=== PATIENT | male | born 1945 | race Caucasian/White ===

== ENCOUNTER → 2018-03-30 08:38 | Outpatient (CLI) | payer OTHER, SELFPAY ==
[2018-03-30 14:04] LABS: ALT 95 U/L (12-78); AST 80 U/L (15-37); Albumin 3.7 g/dL (3.4-5.0); Alkaline Phosphatase 169 U/L (46-116); Bilirubin, Direct 0.16 mg/dL (0.00-0.20); Bilirubin, Total 0.5 mg/dL (0.2-1.0); Total Protein 7.3 g/dL (6.4-8.2)
== END ==
PROVIDERS: PCP Family Medicine; Visit Provider Family Medicine
DX: R94.5 Abnormal results of liver function studies (principal)
CPT/HCPCS: 36415; 80076

== ENCOUNTER 2018-05-18 09:41 | Outpatient (CLI) | payer BC, SELFPAY ==
[2018-05-18 10:12] LABS: Abs Immature Grans 0.01 k/cumm (0.0-0.09); Absolute Basophil Count 0.01 k/cumm (0.0-0.2); Absolute Eosinophil Count 0.06 k/cumm (0.0-0.7); Absolute Lymphocyte Count 1.33 k/cumm (1.2-3.4); Absolute Monocyte Count 0.47 k/cumm (0.11-0.7); Absolute Neutrophil Count 3.18 k/cumm (1.2-6.7); Basophils % 0.2; Eosinophils % 1.2; HCT 43.2 % (40.0-50.0); Immature Grans % 0.2; Lymphocytes % 26.3; Mean Corp. HGB Concentration 34.7 g/dL (32.0-36.0); Mean Corpuscular Hemoglobin 34.5 pg (27.0-33.0); Mean Corpuscular Volume 99.3 fL (80-95); Mean Platelet Volume 10.1 fL (8.0-11.0); Monocytes % 9.3; Neutrophils % 62.8; Platelet Count 156 x1000/uL (130-400); RBC 4.35 m/cumm (4.50-6.00); RBC Distribution Width 12.9 % (11.8-14.1); White Blood Cell Count 5.06 k/cumm (4.4-10.8)
[2018-05-18 10:27] LABS: Hemoglobin A1C 6.3 % (4.5-6.2)
[2018-05-18 10:55] LABS: ALT 66 U/L (12-78); AST 59 U/L (15-37); Albumin 3.8 g/dL (3.4-5.0); Alkaline Phosphatase 111 U/L (46-116); Anion Gap 8.7 mmol/L (3-11); BUN 18 mg/dL (7-18); Bilirubin, Total 0.7 mg/dL (0.2-1.0); CO2 28.3 mmol/L (21.0-32.0); CREATININE 0.85 mg/dL (0.70-1.30); Calcium 9.4 mg/dL (8.5-10.1); Chloride 105 mmol/L (98-107); Glucose 124 mg/dL (70-100); Potassium 4.5 mmol/L (3.5-5.1); Sodium 142 mmol/L (136-145); Total Protein 7.3 g/dL (6.4-8.2); Uric Acid 5.2 mg/dL (3.5-7.2)
[2018-05-18 13:37] LABS: Iron 132 ug/dL (50-175); Total Iron Binding Capacity 275 ug/dL (250-450); Transferrin Sat 48 % (20-55)
[2018-05-18 14:39] LABS: Cholesterol 159 mg/dL (50-200); Ferritin 805 ng/mL (8-388); HDL Cholesterol 49 mg/dL (40-60); LDL CHOLESTEROL 98 mg/dL (<100); Triglyceride 90 mg/dL (30-150)
== END 2018-05-18 10:01 ==
PROVIDERS: PCP Family Medicine; Visit Provider Family Medicine
DX: R94.5 Abnormal results of liver function studies (principal); E78.5 Hyperlipidemia, unspecified; E11.9 Type 2 diabetes mellitus without complications; M76.61 Achilles tendinitis, right leg
CPT/HCPCS: 36415; 80053; 80061; 83721; 82728; 83036; 83540; 83550; 84550; 85025

== ENCOUNTER 2018-07-11 09:31 | Outpatient (CLI) | payer BC, SELFPAY ==
[2018-07-11 10:09] LABS: Abs Immature Grans 0.01 k/cumm (0.0-0.09); Absolute Basophil Count 0.01 k/cumm (0.0-0.2); Absolute Eosinophil Count 0.13 k/cumm (0.0-0.7); Absolute Lymphocyte Count 1.48 k/cumm (1.2-3.4); Absolute Monocyte Count 0.59 k/cumm (0.11-0.7); Absolute Neutrophil Count 3.54 k/cumm (1.2-6.7); Basophils % 0.2; Eosinophils % 2.3; HCT 46.7 % (40.0-50.0); HGB 15.4 g/dL (13.5-17.5); Immature Grans % 0.2; Lymphocytes % 25.7; Mean Corpuscular Hemoglobin 33.4 pg (27.0-33.0); Mean Corpuscular Volume 101.3 fL (80-95); Mean Platelet Volume 10.1 fL (8.0-11.0); Monocytes % 10.2; Neutrophils % 61.4; Platelet Count 172 x1000/uL (130-400); RBC 4.61 m/cumm (4.50-6.00); RBC Distribution Width 13.3 % (11.8-14.1); White Blood Cell Count 5.76 k/cumm (4.4-10.8)
[2018-07-11 10:54] LABS: ALT 69 U/L (12-78); AST 53 U/L (15-37); Albumin 3.9 g/dL (3.4-5.0); Alkaline Phosphatase 120 U/L (46-116); Anion Gap 7.9 mmol/L (3-11); BUN 25 mg/dL (7-18); Bilirubin, Total 0.7 mg/dL (0.2-1.0); CO2 31.1 mmol/L (21.0-32.0); CREATININE 0.87 mg/dL (0.70-1.30); Calcium 9.8 mg/dL (8.5-10.1); Chloride 103 mmol/L (98-107); Glucose 119 mg/dL (70-100); Potassium 4.8 mmol/L (3.5-5.1); Sodium 142 mmol/L (136-145); TSH (W/Ref FT4) 2.06 uIU/mL (0.358-3.74); Total Protein 7.6 g/dL (6.4-8.2)
== END 2018-07-11 09:51 ==
PROVIDERS: PCP Family Medicine; Visit Provider Family Medicine
DX: R19.7 Diarrhea, unspecified (principal)
CPT/HCPCS: 36415; 80053; 84443; 85025

== ENCOUNTER 2019-05-02 02:22 | Outpatient (CLI) | payer BC, SELFPAY ==
[2019-05-02 11:48] LABS: HCT 42.6 % (40.0-50.0); HGB 14.6 g/dL (13.5-17.5); Mean Corp. HGB Concentration 34.3 g/dL (32.0-36.0); Mean Corpuscular Hemoglobin 34.7 pg (27.0-33.0); Mean Corpuscular Volume 101.2 fL (80-95); Mean Platelet Volume 10.5 fL (8.0-11.0); Platelet Count 150 x1000/uL (130-400); RBC 4.21 m/cumm (4.50-6.00); White Blood Cell Count 4.13 k/cumm (4.4-10.8)
[2019-05-02 12:02] LABS: Hemoglobin A1C 6.1 % (4.5-6.2)
[2019-05-02 12:05] LABS: ALT 62 U/L (16-63); AST 52 U/L (15-37); Albumin 3.8 g/dL (3.4-5.0); Alkaline Phosphatase 116 U/L (46-116); Anion Gap 7.9 mmol/L (3-11); BUN 26 mg/dL (7-18); Bilirubin, Total 0.7 mg/dL (0.2-1.0); CO2 29.1 mmol/L (21.0-32.0); CREATININE 0.98 mg/dL (0.70-1.30); Calcium 9.1 mg/dL (8.5-10.1); Calculated LDL 109 mg/dL; Chloride 105 mmol/L (98-107); Cholesterol 177 mg/dL (50-200); Glucose 120 mg/dL (70-100); HDL Cholesterol 46 mg/dL (40-60); Potassium 4.5 mmol/L (3.5-5.1); Sodium 142 mmol/L (136-145); Total Protein 7.3 g/dL (6.4-8.2); Triglyceride 112 mg/dL (30-150)
[2019-05-02 12:21] LABS: Folate 17.7 ng/mL (8.6-20.0); Vitamin B12 726 pg/mL (193-986)
[2019-05-02 13:13] LABS: COMMENT (LAB VIEW ONLY) 76.56 mg/dL; Microalb ug/mg Crea 11.1 ug/mg Cr
== END 2019-05-02 02:42 ==
PROVIDERS: PCP Family Medicine; Visit Provider Family Medicine
DX: E11.9 Type 2 diabetes mellitus without complications (principal); D75.89 Other specified diseases of blood and blood-forming organs
CPT/HCPCS: 36415; 80053; 80061; 85027; 82043; 82570; 82607; 82746; 83036

== ENCOUNTER 2020-04-15 03:48 | Outpatient (CLI) | payer BC, SELFPAY ==
[2020-04-15 12:50] LABS: Absolute Basophil Count 0.02 10^3/uL (0.0-0.2); Absolute Eosinophil Count 0.06 10^3/uL (0.0-0.7); Absolute Lymphocyte Count 1.21 10^3/uL (1.2-3.4); Absolute Monocyte Count 0.54 10^3/uL (0.1-0.8); Absolute Neutrophil Count 3.42 10^3/uL (1.2-6.7); Basophils % 0.4; Eosinophils % 1.1; HCT 49.9 % (40.0-50.0); HGB 16.3 g/dL (13.5-17.5); MCH 34.3 pg (27.0-33.0); MCHC 32.7 % (32.0-36.0); MCV 105.1 fL (80-95); MPV 10.7 fL (8.0-11.0); Monocytes % 10.3; Neutrophils % 65.2; Nucleated RBC 0 %; Platelet Count 147 10^3/uL (130-400); RBC 4.75 10^6/uL (4.36-5.78); RDW 13.5 % (11.8-14.1); WBC 5.25 10^3/uL (4.4-10.8)
[2020-04-15 13:03] LABS: ALT 92 U/L (16-63); AST 67 U/L (15-37); Alkaline Phosphatase 136 U/L (46-116); Anion Gap 5.2 mmol/L (3-11); BUN 24 mg/dL (7-18); Bilirubin, Total 0.9 mg/dL (0.2-1.0); CO2 28.8 mmol/L (21.0-32.0); CREATININE 0.93 mg/dL (0.70-1.30); Calcium 9.2 mg/dL (8.5-10.1); Calculated LDL 64 mg/dL (<100); Chloride 106 mmol/L (98-107); Cholesterol 129 mg/dL (<200); Glucose 124 mg/dL (74-106); HDL Cholesterol 46 mg/dL (40-60); Hemoglobin A1C 6.4 % (<5.7); Potassium 4.2 mmol/L (3.5-5.1); Sodium 140 mmol/L (136-145); Total Protein 7.4 g/dL (6.4-8.2); Triglyceride 95 mg/dL (<150)
[2020-04-15 13:55] LABS: Diff Comment RBC Morph Reviewed; Macrocytosis 1+
== END 2020-04-15 04:08 ==
PROVIDERS: PCP Family Medicine; Visit Provider Family Medicine
DX: E11.9 Type 2 diabetes mellitus without complications (principal); E78.5 Hyperlipidemia, unspecified
CPT/HCPCS: 36415; 80053; 80061; 83036; 85025

== ENCOUNTER 2020-05-05 09:50 | Outpatient (CLI) | payer BC, SELFPAY ==
[2020-05-05 12:29] LABS: Reticulocyte 1.3 % (0.5-2.4)
[2020-05-05 12:35] LABS: ALT 80 U/L (16-63); AST 62 U/L (15-37); Albumin 3.9 g/dL (3.4-5.0); Alkaline Phosphatase 132 U/L (46-116); Bilirubin, Direct 0.32 mg/dL (0.00-0.20); Bilirubin, Total 1.1 mg/dL (0.2-1.0); Total Protein 7.5 g/dL (6.4-8.2)
== END 2020-05-05 10:10 ==
PROVIDERS: PCP Family Medicine; Visit Provider Family Medicine
DX: R94.5 Abnormal results of liver function studies (principal); R71.8 Other abnormality of red blood cells
CPT/HCPCS: 36415; 80076; 85045

== ENCOUNTER 2020-08-21 04:54 | Outpatient (CLI) | payer BC, SELFPAY ==
--- NOTE | 2020-08-21 07:15 | DI.US_ITS ---
EXAM: US ABDOMEN CLINICAL HISTORY: elevated LFT's,R94.5 TECHNIQUE: Ultrasound abdomen performed using standard protocol. COMPARISON: No exams were available for comparison FINDINGS: ABDOMINAL AORTA AND IVC: Visualized portions normal caliber. PANCREAS: Normal where visualized. LIVER: Diffuse increased echogenicity consistent with fatty infiltration. Hepatopedal flow in the Po rtal Vein. There is a 4.1 x 2.6 x 2.6 cm hypoechoic solid mass in the right lobe of the liver. Mild vascularity is noted. GALLBLADDER: No evidence of cholelithiasis. No evidence of wall thickening. No pericholecystic fluid identified. BILIARY SYSTEM: Common bile duct measures < 7 mm. No intrahepatic biliary ductal dilation. BURNETT'S SIGN: Negative. KIDNEYS: Kidneys are symmetric in size. No evidence of renal calculi. No evidence of hydronephrosis. There is a 1 x 0.6 x 0.9 cm simple cyst in the midpole of the left kidney. There is a 2.3 x 1.7 x 2. 6 cm cyst in the inferior pole of the right kidney. There does appear to be a thin internal septatio n. No associated solid mass. SPLEEN: Upper limits of normal at 12.5 cm. ASCITES: None seen. IMPRESSION: 1. Hepatic steatosis. 2. 4.1 x 2.6 x 2.6 cm hypoechoic solid mass in the right lobe of the liver. A [address] scan of the abdomen is recommended for further evaluation. 3. Bilateral renal cysts. 4. Upper limits of normal spleen. DATA REPOSITORY:
[2020-08-21 09:01] LABS: Abs Immature Grans 0.01 10^3/uL (0.0-0.06); Absolute Basophil Count 0.03 10^3/uL (0.0-0.2); Absolute Eosinophil Count 0.06 10^3/uL (0.0-0.7); Absolute Lymphocyte Count 1.46 10^3/uL (1.2-3.4); Absolute Monocyte Count 0.54 10^3/uL (0.1-0.8); Absolute Neutrophil Count 3.12 10^3/uL (1.2-6.7); Basophils % 0.6; Eosinophils % 1.1; HCT 48.7 % (40.0-50.0); HGB 16.3 g/dL (13.5-17.5); Immature Grans % 0.2; MCH 33.5 pg (27.0-33.0); MCHC 33.5 % (32.0-36.0); MCV 100.2 fL (80-95); MPV 9.6 fL (8.0-11.0); Monocytes % 10.3; Neutrophils % 59.8; Nucleated RBC 0 %; Platelet Count 137 10^3/uL (130-400); RBC 4.86 10^6/uL (4.36-5.78); RDW 12.5 % (11.8-14.1); RDW-SD 46.5 fL; WBC 5.22 10^3/uL (4.4-10.8)
[2020-08-21 09:48] LABS: Iron 155 ug/dL (65-175); Total Iron Binding Capacity 275 ug/dL (250-450); Transferrin Sat 56 % (20-55)
[2020-08-21 10:16] LABS: Ferritin 777 ng/mL (26-388); Vitamin B12 1120 pg/mL (193-986)
[2020-08-21 10:17] LABS: Folate > 20.0 ng/mL (8.6-20.0)
[2020-08-22 11:01] LABS: C-Reactive Protein 0.48 mg/dL (0.0-0.3)
[2020-08-22 20:26] LABS: ALT 78 U/L (16-63); AST 58 U/L (15-37); Albumin 4.3 g/dL (3.4-5.0); Alkaline Phosphatase 121 U/L (46-116); Bilirubin, Direct 0.21 mg/dL (0.00-0.20); Bilirubin, Total 0.9 mg/dL (0.2-1.0); Total Protein 7.9 g/dL (6.4-8.2)
== END 2020-08-21 05:14 ==
PROVIDERS: Family Medicine; PCP Family Medicine; Visit Provider Family Medicine
DX: K76.0 Fatty (change of) liver, not elsewhere classified (principal); N28.1 Cyst of kidney, acquired; K76.89 Other specified diseases of liver; R94.5 Abnormal results of liver function studies; D75.89 Other specified diseases of blood and blood-forming organs; R79.89 Other specified abnormal findings of blood chemistry
CPT/HCPCS: 36415; 80076; 85652; 76700; 82607; 82728; 82746; 83540; 83550; 85025; 86140

== ENCOUNTER 2020-09-04 01:24 | Outpatient (CLI) | payer BC, SELFPAY ==
--- NOTE | 2020-09-04 06:30 | DI.MRI_ITS ---
EXAM: MR ABDOMEN WO/W CLINICAL HISTORY: liver lesion TECHNIQUE: Multiplanar multisequence MRA of the Abdomen was performed. CONTRAST MATERIAL: IV Contrast: 18 mL of Dotarem contrast administered. COMPARISON: US US ABDOMEN from 08/21/2020 FINDINGS: The examination is limited due to patient motion artifact. Liver: Overall, there are findings of fatty infiltration of the liver with increased signal of the li pérez compared to the spleen on the inphase images. On the T2 weighted images, there is a bilobed area of hyperintense signal measuring 4.1 x 3.1 cm. It is located in the posterior segment of the right lobe of the liver. This area shows enhancement on the arterial phase images. There does appear to b e persistent enhancement on the venous, 3, 5 and 10 minutes delayed images. However a component of t his area becomes hypointense on the venous and subsequent images. (Series [id number], image 68 compared w ith series [id number], image 69). No other hepatic lesions are identified. Pancreas: Unremarkable. Gallbladderand Bile Ducts: Unremarkable. No biliary ductal dilatation. Adrenals: Unremarkable. 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 Spleen: Unremarkable. Aorta: Unremarkable. Soft Tissues: Unremarkable. Bone: Multilevel degenerative changes are present. Lymph Nodes: No adenopathy. IMPRESSION: 1. Examination limited by patient motion artifact. 2. 4.1 x 3.1 cm lesion in the posterior segment of the right lobe of the liver as described above. A hepatic neoplasm should be excluded including hepatocellular carcinoma, fibrolamellar HCC or metasta tic disease. DATA REPOSITORY:
[2020-09-04 08:28] LABS: CREATININE 0.9 mg/dL (0.70-1.30)
[2020-09-04] MEDS: Gadoterate meglumine 20 ML VIAL 18 ML IVP (09:33)
[2020-09-05 09:45] LABS: AFP Tumor Marker 5.9 ng/mL (<8.1)
[2020-09-05 10:29] LABS: CA 19-9 14 U/mL (<35)
== END 2020-09-04 01:25 | disposition home or self-care (01) ==
LOC: DI 01:25
PROVIDERS: PCP Family Medicine; Visit Provider Family Medicine
DX: K76.89 Other specified diseases of liver (principal)
CPT/HCPCS: 74183; 82105; 82565; 86301

== ENCOUNTER 2020-09-11 01:49 | Outpatient (CLI) | payer BC, SELFPAY ==
--- NOTE | 2020-09-11 06:45 | DI.RAD_ITS ---
EXAM: XR CHEST 2V PA LATERAL CLINICAL HISTORY: liver mass,R16.0 TECHNIQUE: 2D digital imaging was performed. COMPARISON: No exams were available for comparison FINDINGS: MEDIASTINUM: Normal. No visible adenopathy. HEART: Normal. PULMONARY VASCULATURE: Normal. LUNGS: Clear. No infiltrates or pulmonary nodules. PLEURAL SPACE: No pleural effusion or pneumothorax. BONE:Degenerative changes in the spine and shoulders. OTHER FINDINGS:Normal. IMPRESSION: No acute pulmonary findings. DATA REPOSITORY: RADIATION DOSE DELIVERED:
== END 2020-09-11 01:50 ==
LOC: DI 01:49
PROVIDERS: PCP Family Medicine; Visit Provider Family Medicine
DX: R16.0 Hepatomegaly, not elsewhere classified (principal)
CPT/HCPCS: 71046

== ENCOUNTER 2020-11-07 02:35 | Outpatient (CLI) | payer BC, SELFPAY ==
[2020-11-07 15:39] LABS: COVID-19 PCR Negative (Negative)
== END 2020-11-07 02:36 | disposition home or self-care (01) ==
LOC: LBO 02:35
PROVIDERS: PCP Family Medicine; Visit Provider Internal Medicine
DX: Z20.822 Contact with and (suspected) exposure to COVID-19 (principal); Z01.818 Encounter for other preprocedural examination
CPT/HCPCS: 87635

== ENCOUNTER 2021-03-18 15:22 | Outpatient (CLI) | payer MEDICARE, BC, SELFPAY ==
--- NOTE | 2021-03-18 12:30 | DI.RAD_ITS ---
Exam(s) XR SHOULDER LT COMPLETE 2+V EXAM: XR SHOULDER LT COMPLETE 2+V CLINICAL HISTORY: fall on left shoulder 2 days ago,pain, m25.512. TECHNIQUE: 2D digital imaging was performed. COMPARISON: No exams were available for comparison FINDINGS: No evidence of acute fracture. However, there are significant advanced degenerative changes in the g lenohumeral joint. Also degenerative changes in the AC joint and significant diminution of the subac romial space as well as an osteophytic ridge on the undersurface of the acromion. The above findings are most probably compatible with chronic full-thickness rotator cuff mechanism tear in addition to the degenerative changes. There are no ominous osseous lesions. IMPRESSION: DATA REPOSITORY: RADIATION DOSE DELIVERED:
== END 2021-03-18 15:42 ==
PROVIDERS: PCP Family Medicine; Visit Provider Family Medicine
DX: G89.11 Acute pain due to trauma (principal); M25.512 Pain in left shoulder; M19.012 Primary osteoarthritis, left shoulder; W18.30XA Fall on same level, unspecified, initial encounter; Y92.828 Other wilderness area as the place of occurrence of the external cause; Y99.8 Other external cause status
CPT/HCPCS: 73030

== ENCOUNTER → 2021-04-28 08:55 | Outpatient (BNVA) | payer MEDICARE, BC, SELFPAY | PROVIDERS: PCP Family Medicine; Referring Provider Family Medicine; Visit Provider Student in an Organized Health Care Education/Training Program | DX: M25.512 Pain in left shoulder (principal); M13.812 Other specified arthritis, left shoulder; S49.82XA Other specified injuries of left shoulder and upper arm, initial encounter; W18.39XA Other fall on same level, initial encounter | CPT/HCPCS: 20610; 99203; 99214; J1040 ==

== ENCOUNTER 2021-05-22 02:10 | Outpatient (CLI) | payer MEDICARE, BC, SELFPAY ==
[2021-05-22 10:42] LABS: Hemoglobin A1C 6.7 % (<5.7)
== END 2021-05-22 02:11 | disposition home or self-care (01) ==
LOC: LBO 02:10
PROVIDERS: PCP Family Medicine; Visit Provider Physical Medicine & Rehabilitation
DX: E11.9 Type 2 diabetes mellitus without complications (principal); K74.60 Unspecified cirrhosis of liver
CPT/HCPCS: 36415; 83036

== ENCOUNTER 2021-06-08 01:33 | Outpatient (CLI) | payer MEDICARE, BC, SELFPAY ==
--- NOTE | 2021-06-08 13:00 | NS.NUTBLAN_ITS ---
Suhas was referred to [facility] for diabetes self management education. Suhas and report that he is on a liver transplant list as with liver tumor/failure. PMH: DM2, HTN. Most recent A1C: 6.1% (05/22/21) indicating well controlled diabetes. DM meds: Jardiance 20 mg qd. BMI 25 Suhas reports stable weight in last 2 years, no evidence of ascites and overall feels well. He has, however, been having fatigue that he attributes to blood sugars. Placed a dexcom 6 continuous glucose monitor and provided education on how to sync with phone and how to interact with jessica and include food choices. Session today also included food recall which indicates well balanced, whole foods. Limits sodium to < 2000 mg per day, protein intake goal is 120 g per day. Will call in 10 days to discuss blood sugar results.
--- NOTE | 2021-06-18 09:23 | W.NUTRFU ---
Date of service: 06/18/21 Time of Service: 09:23 Nutrition Note NOTE: Spoke to Suhas on phone today. He states he has not started to use Dexcom 6 continuous glucose monitor as just had an MRI. Will follow up if has any questions about device and glycemic values. No follow up planned at this time. Time Spent in Nutritional Counseling and Treatment: 0
== END 2021-06-08 01:34 | disposition home or self-care (01) ==
LOC: DS 01:33
PROVIDERS: PCP Family Medicine; Visit Provider Internal Medicine
DX: E11.9 Type 2 diabetes mellitus without complications (principal); Z79.84 Long term (current) use of oral hypoglycemic drugs; Z71.3 Dietary counseling and surveillance; I10 Essential (primary) hypertension
CPT/HCPCS: 97802

== ENCOUNTER → 2021-06-09 09:59 | Outpatient (BNVA) | payer MEDICARE, BC, SELFPAY | PROVIDERS: PCP Family Medicine; Referring Provider Family Medicine | DX: M19.012 Primary osteoarthritis, left shoulder (principal) | CPT/HCPCS: 20610; J1040 ==

== ENCOUNTER → 2021-08-18 09:02 | Outpatient (BNVA) | payer MEDICARE, OTHER, SELFPAY | PROVIDERS: PCP Family Medicine; Referring Provider Family Medicine; Visit Provider Student in an Organized Health Care Education/Training Program | DX: M19.012 Primary osteoarthritis, left shoulder (principal); E11.9 Type 2 diabetes mellitus without complications; K72.90 Hepatic failure, unspecified without coma; Z98.890 Other specified postprocedural states | CPT/HCPCS: 99213 ==

== ENCOUNTER 2021-11-03 04:43 | Outpatient (CLI) | payer MEDICARE, OTHER, SELFPAY ==
[2021-11-03 15:46] LABS: Abs Immature Grans 0.03 10^3/uL (0.0-0.06); Absolute Basophil Count 0.06 10^3/uL (0.0-0.2); Absolute Eosinophil Count 0.28 10^3/uL (0.0-0.7); Absolute Lymphocyte Count 0.57 10^3/uL (1.2-3.4); Absolute Monocyte Count 0.77 10^3/uL (0.1-0.8); Absolute Neutrophil Count 5.97 10^3/uL (1.2-6.7); Basophils % 0.8; Eosinophils % 3.6; HCT 32.3 % (40.0-50.0); HGB 10.5 g/dL (13.5-17.5); Immature Grans % 0.4; Lymphocytes % 7.4; MCH 32.9 pg (27.0-33.0); MCHC 32.5 % (32.0-36.0); MCV 101.3 fL (80-95); Neutrophils % 77.8; Nucleated RBC 0 %; Platelet Count 298 10^3/uL (130-400); RBC 3.19 10^6/uL (4.36-5.78); RDW 14.6 % (11.8-14.1); RDW-SD 54.4 fL; WBC 7.68 10^3/uL (4.4-10.8)
[2021-11-03 15:59] LABS: INR 1.1 (0.9-1.1); Prothrombin Time 11.3 sec (9.3-11.0)
[2021-11-03 17:17] LABS: ALT 32 U/L (16-63); AST 21 U/L (15-37); Albumin 3.4 g/dL (3.4-5.0); Alkaline Phosphatase 250 U/L (46-116); Bilirubin, Direct 0.2 mg/dL (0.0-0.2); Bilirubin, Total 0.9 mg/dL (0.2-1.0); Total Protein 6.8 g/dL (6.4-8.2)
[2021-11-04 14:00] LABS: Lab Add On Test DONE
[2021-11-04 14:09] LABS: Magnesium 1.9 mg/dL (1.8-2.4); Potassium 4.5 mmol/L (3.5-5.1)
== END 2021-11-03 04:44 | disposition home or self-care (01) ==
LOC: LBO 04:47
PROVIDERS: Family Medicine; PCP Family Medicine
DX: Z48.23 Encounter for aftercare following liver transplant (principal); Z94.4 Liver transplant status; Z79.899 Other long term (current) drug therapy; R11.0 Nausea
CPT/HCPCS: 80076; 80197; 83735; 84132; 85025; 85610

== ENCOUNTER → 2022-06-29 12:23 | Outpatient (CLI) | payer MEDICARE, OTHER, SELFPAY ==
--- NOTE | 2022-06-29 | DI.RAD_ITS ---
Exam(s) XR CHEST 2V PA LATERAL EXAM: XR CHEST 2V PA LATERAL CLINICAL HISTORY: COUGH, R05.8 TECHNIQUE: 2D digital imaging was performed of the chest. Two images were obtained. PA and lateral views were obtained. COMPARISON: CR XR CHEST 2V PA LATERAL from 09/11/2020 FINDINGS: MEDIASTINUM: Normal. HEART: Normal. PULMONARY VASCULATURE: Normal. LUNGS: Clear. PLEURAL SPACE: No pleural effusion or pneumothorax. BONE:Within normal limits for the patient's age. OTHER FINDINGS:Normal. IMPRESSION: No acute pulmonary findings. DATA REPOSITORY: RADIATION DOSE DELIVERED:
== END ==
PROVIDERS: Visit Provider Family Medicine
DX: R05.8 Other specified cough (principal)
CPT/HCPCS: 71046

== ENCOUNTER 2025-01-08 15:17 | Outpatient (REF) | payer MEDICARE, OTHER, SELFPAY ==
[2025-01-08 16:20] LABS: COMMENT (LAB VIEW ONLY) 44.17 mg/dL
== END 2025-01-08 15:18 | disposition home or self-care (01) ==
LOC: NCHCN 15:17
PROVIDERS: PCP Family Medicine; Visit Provider Family Medicine
DX: E11.9 Type 2 diabetes mellitus without complications (principal)
CPT/HCPCS: 82043; 82570